=== PATIENT | female | born 1940 | race African-American/Black ===

== ENCOUNTER 2016-10-08 10:29 | Emergency (ER) | payer MEDICARE ==
--- NOTE | 2016-10-08 13:38 | ED Physician Documentation ---
History of Present Illness - Stated complaint Stated Complaint: R SIDE PAIN/WARMNESS - Chief complaint Chief Complaint: Back Pain - Additonal information Additional information: hx from pt 76 female visiting from [place] 3 weeks of R flank to right mid abd discomfort with warmth to the touch no rash no fever no NVD no dysuria hematuria her MD friend suggested CYNTHIA gibbons, she is visiting locally, so her insurance rec come to ED for eval Review of Systems Constitutional: denies: Fever, Chills Cardiac: denies: Chest pain / pressure Respiratory: denies: Dyspnea GI: reports: Abdominal Pain. denies: Nausea, Vomiting, Diarrhea : denies: Dysuria, Hematuria Musculoskeletal: reports: Back pain Endocrine: denies: Easy bruising / bleeding Immunocompromised: denies: Immunocompromised PD PAST MEDICAL HISTORY - Past Medical History Past Medical History: Yes Cardiovascular: Murmur Musculoskeletal: Osteoarthritis - Past Surgical History Past Surgical History: Yes Ortho: Knee replacement, Other /[employer]: Hysterectomy - Present Medications Home Medications: Ambulatory Orders Medication Instructions Recorded Confirmed Cephalexin [Keflex] 500 mg PO Q6H #40 capsule 10/08/16 Levothyroxine [Synthroid] 125 mcg PO DAILY 10/08/16 10/08/16 Losartan [Cozaar] 100 mg PO DAILY 10/08/16 10/08/16 Mupirocin 1 gm TP DAILY 10/08/16 10/08/16 amLODIPine [Norvasc] 10 mg PO DAILY 10/08/16 10/08/16 - Allergies Allergies/Adverse Reactions: Allergies Allergy/AdvReac Type Severity Reaction Status Date / Time No Known Drug Allergies Allergy Verified 10/08/16 10:37 - Social History Does the pt smoke?: No Smoking Status: Never smoker Does the pt drink ETOH?: Yes ETOH Use: Other Does the pt have substance abuse?: No - Immunizations Immunizations are current?: Yes - POLST Patient has POLST: No PD ED PE NORMAL - Vitals Vital signs reviewed: Yes - Cardiac Cardiac: RRR - Respiratory Respiratory: No respiratory distress, Clear bilaterally - Abdomen Abdomen: Soft, Other (mild mid abd TTP no pulsatile mass neg cedeño) - Back Back: No: No CVA TTP (mild R CVA TTP) - Derm Derm: No rash (no shingles or cellulitis) - Psych Psych: Normal mood Results - Vitals Vitals: Vital Signs - 24 hr 10/08/16 10/08/16 10/08/16 10:33 12:26 16:21 Temperature 36.1 C L 36.5 C Heart Rate 84 73 77 Respiratory 14 18 18 Rate Blood Pressure 146/78 H 134/72 H 146/91 H O2 Saturation 100 97 99 Oxygen O2 Source Room air - Labs Labs: Laboratory Tests 10/08/16 10/08/16 14:10 15:30 Sodium 140 Potassium 3.8 Chloride 107 Carbon Dioxide 23 Anion Gap 10.0 BUN 14 Creatinine 0.7 Estimated GFR (MDRD) 99 Glucose 71 Calcium 9.1 Total Bilirubin 0.2 AST 25 ALT 19 Alkaline Phosphatase 65 Total Protein 7.8 Albumin 4.4 Globulin 3.4 Albumin/Globulin Ratio 1.3 Lipase 22 Urine Color YELLOW Urine Clarity CLEAR Urine pH 7.0 Ur Specific [place] 1.015 Urine Protein NEGATIVE Urine Glucose (UA) NEGATIVE Urine Ketones NEGATIVE Urine Occult Blood NEGATIVE Urine Nitrite POSITIVE H Urine Bilirubin NEGATIVE Urine Urobilinogen 0.2 (NORMAL) Ur Leukocyte Esterase NEGATIVE Urine RBC None Seen Urine WBC 0-3 Ur Squamous Epith Cells RARE Squamous Urine Bacteria Many H Ur Microscopic Review INDICATED Urine Culture Comments INDICATED - Rads (name of study) abd sono Radiology: See rad report (nl biliary system, 5.3 cm R renal cyst, no hydro or stone) Departure - Departure Disposition: 01 Home, Self Care Clinical Impression: Pyelonephritis, Renal cyst Condition: Good Instructions: ED Kidney Infec Female Prescriptions: Cephalexin [Keflex] 500 mg PO Q6H #40 capsule Comments: Your kidney and liver function tests were fine. The urine showed you have a kidney infection. The ultrasound did not show any gallstones. But the ultrasound did show a large cyst on your right kidney that will need further work up when you get home to [place] For now I have prescribed antibiotics and you can take tylenol as needed for the pain Also please follow up with your PMD about your blood pressure - it was high today Discharge Date/Time: 10/08/16 16:26
[2016-10-08 14:49] LABS: ALBUMIN/GLOBULIN RATIO 1.3 (1.0-2.2); BILIRUBIN,TOTAL 0.2 mg/dL (0.2-1.0); CREATININE 0.7 mg/dL (0.4-1.0); TOTAL PROTEIN 7.8 g/dL (6.7-8.2)
[2016-10-08 14:50] LABS: CALCIUM 9.1 mg/dL (8.5-10.3); POTASSIUM 3.8 mmol/L (3.5-5.0)
--- NOTE | 2016-10-08 15:21 | Ultrasound Report ---
RIGHT UPPER QUADRANT ULTRASOUND: 10/08/2016 CLINICAL INDICATION: Right flank pain. TECHNIQUE: Real-time scanning was performed with insurance service representative static images obtained. FINDINGS: The liver measures 11.7 cm. Hepatic echogenicity is mildly increased, suggestive of mild fatty infiltration. No focal parenchymal lesion or intrahepatic biliary dilatation is present. The common bile duct measures 6 mm. The gallbladder demonstrates a tiny amount of sludge within the lume n. No stones or wall thickening is present. The right kidney measures 10 cm, and contains a 5.3 cm cortical cyst. No hydronephrosis or definite shadowing calculus is seen. IMPRESSION: NO EVIDENCE OF CHOLELITHIASIS OR BILIARY OBSTRUCTION. NO HYDRONEPHROSIS. JOB #: [id number] EXT JOB #:[id number]
[2016-10-08 15:41] LABS: BILIRUBIN,URINE NEGATIVE (NEGATIVE)
[2016-10-08 15:42] LABS: UA w/ MICROSCOPIC CHARGE YES
[2016-10-08 15:57] LABS: UR CULTURE IF IND INDICATED; WBC,URINE 0-3 /HPF (0-5)
[2016-10-08 16:22] VITALS: BP 146/91
== END 2016-10-08 16:26 | disposition home or self-care (01) ==
LOC: ED 10:29
DX: N12 Tubulo-interstitial nephritis, not specified as acute or chronic (principal); N28.1 Cyst of kidney, acquired; R03.0 Elevated blood-pressure reading, without diagnosis of hypertension
CPT/HCPCS: 36415; 76705; 80053; 81001; 81003; 83690; 87077; 87086; 99283